=== PATIENT | female | born 1985 | race Caucasian/White ===

== ENCOUNTER 2020-10-17 20:00 | Emergency (ER) | payer SELFPAY ==
[2020-10-17 20:11] VITALS: BP 119/79; PULSE 83; RESP 17; TEMP 36.8; O2SAT 83; BMI 40.7
[2020-10-17 20:20] LABS: Microscopic, Urine URINE MICROSCOPIC (MICROSCOPIC)
[2020-10-17 20:22] LABS: Appearance,Urine CLOUDY (Clear); Blood, Urine TRACE-L (Negative); Color,Urine YELLOW (Yellow); Glucose,Urine (UA) Negative (Negative); Ketones,Urine 1+ (Negative); Leukocyte Esterase,Urine Negative (Negative); Nitrate,Urine Negative (Negative); Protein,Urine 1+ (Negative); Specific Gravity, Urine >= 1.030 (1.005-1.030); Urobilinogen,Urine 0.2 EU/dl (0.2)
[2020-10-17 20:27] LABS: Bilirubin,Urine Negative (Negative)
--- NOTE | 2020-10-17 20:28 | CT_ITS ---
PROCEDURE INFORMATION: Exam: CT Abdomen And Pelvis With Contrast Exam date and time: 10/17/2020 8:28 PM Age: 34 years old Clinical indication: Vomiting; Abdominal pain; Prior surgery; Surgery date: 1-6 months; Patient HX: Epigastric pain for 1 day, PT vomited, gastric sleeve SX 08/17, shot of oral contrast drank right before scan; Additional info: Epigastric pain, sudden onset TECHNIQUE: Imaging protocol: Computed tomography of the abdomen and pelvis with contrast. Radiation optimization: All CT scans at this facility use at least one of these dose optimization techniques: automated exposure control; mA and/or kV adjustment per patient size (includes targeted exams where dose is matched to clinical indication); or iterative reconstruction. Contrast material: ISOVUE; Contrast volume: 65 ml; Contrast route: IV; Other contrast: Oral, gastro, 20; COMPARISON: No relevant prior studies available. FINDINGS: Lungs: Minimal atelectasis. RML calcified granuloma. Few noncalcified nodules, up to 0.5 cm. Lower thorax: Calcified mediastinal and hilar lymph nodes. Liver: < 1.0 cm hypodense lesion. Gallbladder and bile ducts: No calcified stones. No ductal dilation. Pancreas: Unremarkable. No ductal dilation. Spleen: Small calcification. No splenomegaly. Adrenal glands: No mass. Kidneys and ureters: Too small to characterize lesion within RIGHT kidney (< 1 cm). No significant hydronephrosis. Stomach and bowel: Postsurgical changes of stomach. No definite mural thickening. No obstruction. Appendix: No findings to suggest appendicitis. Intraperitoneal space: No significant fluid collection. No definite free air. Vasculature: Unremarkable. No aneurysm. Lymph nodes: No pathologically enlarged lymph nodes. Urinary bladder: Unremarkable. Reproductive: Hysterectomy. Bones/joints: No acute fracture. Soft tissues: Mild focal scarring within RIGHT anterior abdominal wall. IMPRESSION: 1. No definite acute intraabdominal abnormality. 2. Liver lesion. In a low-risk patient, this lesion is most likely to be benign and no further follow-up is recommended. In a high-risk patient, recommend follow-up MRI in 3-6 months (or earlier if warranted by the patient's specific clinical circumstances). 3. Pulmonary nodules. If patient does not have known cancer, follow up should be based on clinical information because of the low risk of cancer in this age group. (Mai et al., Fleischner Society, 2017). COMMENTS: Consistent with the [employer]'s Incidental Findings Committee white paper (J Am Erik Radiol 2018): Any incidental renal lesion less than 1 cm or classified as too small to characterize, or any incidental cystic renal lesion characterized as simple-appearing, is likely benign. No follow-up imaging is recommended for these lesions per consensus recommendations based on imaging criteria.
[2020-10-17 20:30] LABS: Amorphous Sediment,Urine 3+ /lpf; Bacteria,Urine 2+ /lpf; Squamous Epithelial Cell,Urine 50-100 #/hpf (0-5)
--- NOTE | 2020-10-17 20:33 | [facility].EDNVD ---
ED Disposition Clinical Impression: Abdominal pain Qualifiers: Abdominal location: epigastric Qualified Code(s): R10.13 - Epigastric pain Disposition: Home, Self-Care Condition on Discharge: Good Instructions: DI for Acute Abdominal Pain Additional Instructions: call surg in am for follow up Referrals: Silvia Almeida [Primary Care Provider] - - Critical Care Critical Care Time: No Attestation: On 10/17/20, the high probability of a clinically significant, sudden or life threatening deterioration of the following system(s) required my full and direct attention, intervention and personal management. The time I documented below is in addition to time spent performing reported procedures but includes the following listed in this critical care notation. Medical Decision Making - Medical Records Medical records reviewed: Yes: I reviewed the patient's medical records. - Reji Inquiry Pt receiving controlled substance: No Vital Signs: 10/17/20 20:11 10/17/20 21:47 10/17/20 22:19 Temperature 98.3 F 98.1 F Temperature Source Oral Oral Pulse Rate 53 L 71 Pulse Rate [Right Brachial] 83 Respiratory Rate 17 15 Blood Pressure 95/53 L 106/61 L Blood Pressure [Right Arm] 119/79 Blood Pressure Mean 72 Blood Pressure Mean [Right Arm] 92 Blood Pressure Source Automatic Cuff Blood Pressure Source [Right Arm] Automatic Cuff Blood Pressure Position Sitting Blood Pressure Position [Right Arm] Sitting 02 Sat by Pulse Oximetry 83 L 99 Oxygen Delivery Method Room Air Room Air - Lab Data Lab results reviewed: Yes: I reviewed the patient's lab results. Lab Results 10/17/20 20:05: Urine Color Yellow, Urine Appearance Cloudy, Urine pH 5.0, Ur Specific [place] >= 1.030, Urine Protein 1+, Urine Glucose (UA) Negative, Urine Ketones 1+, Urine Blood Trace-l, Urine Nitrate Negative, Urine Bilirubin Negative, Urine Urobilinogen 0.2, Ur Leukocyte Esterase Negative, Urine RBC None, Urine WBC 3-5, Ur Squamous Epith Cells 50-100, Amorphous Sediment 3+, Urine Bacteria 2+ 10/17/20 20:15: WBC 7.5, RBC 5.09, Hgb 15.0, Hct 46.3, MCV 91.0, MCH 29.5, MCHC 32.4, RDW 14.5, Plt Count 220, MPV 9.3, Neut % (Auto) 56.3, Lymph % (Auto) 34.4, Meagher % (Auto) 5.4, Eos % (Auto) 3.3, Baso % (Auto) 0.7, Neut # (Auto) 4.2, Lymph # (Auto) 2.6, Meagher # (Auto) 0.4, Eos # (Auto) 0.3, Baso # (Auto) 0.1 10/17/20 20:15: Sodium 141, Potassium 3.6, Chloride 106, Carbon Dioxide 23, Anion Gap 15.6 H, BUN 8, Creatinine 0.80, Estimated Creat Clear 177, Estimated GFR 83, Est GFR ( Amer) 101, Glucose 118 H, Calcium 9.7, Total Bilirubin 0.9, AST 43 H, ALT 61, Alkaline Phosphatase 71, Total Protein 7.6, Albumin 4.8, Globulin 2.8, Albumin/Globulin Ratio 1.7, Amylase 90, Lipase 152, Acetone Level None detected Result diagrams: 10/17/20 20:15 10/17/20 20:15 Orders (Tests/Meds): ED MEDICATIONS Generic Name Dose Route Start Last Admin Trade Name Freq PRN Reason Stop Dose Admin Sodium Chloride 1,000 mls @ 999 mls/hr 10/17/20 20:30 10/17/20 20:31 Sod Chlor 0.9% 1000ml Bag IV 10/17/20 21:30 999 mls/hr .Q1H1M DAVONTE Administration Sodium Chloride 8 ml 10/17/20 20:26 Sodium Chloride 0.9% 10ml Vial IV 11/16/20 20:25 NEEDED PRN dilute pepcid Discontinued Medications Generic Name Dose Route Start Last Admin Trade Name Freq PRN Reason Stop Dose Admin Diatrizoate Meglum/Diatrizoate Sod 20 ml 10/17/20 21:27 10/17/20 21:27 Diatrizoate Meglumine(Gastrografin) 66%-10% 120ml PO 10/17/20 21:28 20 ml ONCE ONE Administration Famotidine 20 mg 10/17/20 20:26 10/17/20 20:29 Famotidine 20mg/2ml Vial IV 10/17/20 20:27 20 mg ONCE ONE Administration Iopamidol 65 ml 10/17/20 21:27 10/17/20 21:27 Iopamidol-370 (76%);100ml Bottle IV 10/17/20 21:28 65 ml ONCE ONE Administration Ketorolac Tromethamine 30 mg 10/17/20 20:26 10/17/20 20:31 Ketorolac 30mg/Ml Vial IV 10/17/20 20:27 30 mg ONCE ONE Adm
[2020-10-17 20:52] LABS: Chloride 106 mmol/L (98-107); Potassium 3.6 mmoL/L (3.5-5.1); Sodium 141 mmol/L (136-145)
[2020-10-17 20:53] LABS: Basophils # 0.1 K/mm3 (0-0.2); Basophils % 0.7 % (0.1-2.0); Eosinophils # 0.3 K/mm3 (0.0-0.4); Eosinophils % 3.3 % (0.1-12.0); Hematocrit 46.3 % (37.0-47.0); Lymphocytes # 2.6 K/mm3 (0.7-4.5); Lymphocytes % 34.4 % (10-50); Mean Corpuscular HGB Conc 32.4 g/dL (31.8-35.4); Mean Corpuscular Hemoglobin 29.5 pg (27.0-31.2); Mean Platelet Volume 9.3 fl (7.4-10.4); Monocytes # 0.4 K/mm3 (0.1-1.0); Monocytes % 5.4 % (1.7-9.3); Neutrophils # 4.2 K/mm3 (1.8-7.8); Neutrophils % 56.3 % (37.0-80.0); Platelet Count 220 K/mm3 (142-424); Red Blood Count 5.09 M/mm3 (4.20-5.40); Red Cell Distribution Width 14.5 % (11.5-17.5); White Blood Count 7.5 K/mm3 (4.8-10.8)
[2020-10-17 20:54] LABS: Acetone, Serum (Rapid) None Detected (None Detect); Alanine Aminotransferase 61 U/L (12-78); Amylase 90 U/L (30-110); Aspartate Amino Transferase 43 U/L (14-36); Blood Urea Nitrogen 8 mg/dl (7-17); Creatinine Clearance Estimated 177 mL/min (50-200); Estimated Glomerular Filt Rate 83 ml/min (>60); GFR (African American) 101 ML/MIN (>60)
[2020-10-17 20:55] LABS: Albumin Level 4.8 g/dl (3.5-5.0); Albumin/Globulin Ratio 1.7 (1.1-1.8); Alkaline Phosphatase 71 U/L (38-126); Anion Gap 15.6 mEq/L (5-15); Bilirubin,Total 0.9 mg/dl (0.2-1.3); Calcium 9.7 mg/dl (8.4-10.2); Carbon Dioxide 23 mmol/L (22.0-30.0); Globulin 2.8 g/dL (1.3-3.2); Glucose 118 mg/dl (74-100); Lipase 152 U/L (23-300); Total Protein,Serum 7.6 g/dl (6.3-8.2)
--- NOTE | 2020-10-17 21:04 | PC.NURSE ---
Alexander giron here to get pt, notified that pt needs to drink oral contrast then have CT no wait time per MD.
--- NOTE | 2020-10-17 21:29 | PC.NURSE ---
pt back from ct
[2020-10-17 21:47] VITALS: BP 95/53; PULSE 53; O2SAT 99
[2020-10-17 22:19] VITALS: BP 106/61; PULSE 71; RESP 15; TEMP 36.7; O2SAT 98
== END 2020-10-17 22:35 | disposition home or self-care (01) ==
PROVIDERS: Emergency Provider Emergency Medicine; PCP Family Medicine
DX: R10.13 Epigastric pain (principal); Z88.8 Allergy status to other drugs, medicaments and biological substances
CPT/HCPCS: 74177; 80053; 81001; 82009; 82150; 83690; 85025; 87086; 96365; 99283; J2405; Q9967